=== PATIENT | female | born 1985 | race Caucasian/White ===

== ENCOUNTER 2021-10-06 10:35 | Emergency (ER) | payer OTHER ==
[~2021-10-06] VITALS: Ht 162.6 cm; Wt 70.0 kg
[2021-10-06] MEDS ORDERED: FLUO10CA24 PO (10:50)
[2021-10-06] MEDS ORDERED: MEDR150V13 IM (10:51)
[2021-10-06] MEDS ORDERED: NITR-75 PO (12:01)
[2021-10-06] MEDS ORDERED: PHEN-846 PO (12:01)
[2021-10-06 12:29] VITALS: BP 103/64
[2021-10-06 12:36] LABS: APPEARANCE,URINE CLEAR (CLEAR); BILIRUBIN,URINE NEGATIVE (NEGATIVE); GLUCOSE, URINE (UA) NEGATIVE (NEGATIVE); KETONES,URINE NEGATIVE (NEGATIVE); LEUKOCYTE ESTERASE ,URINE LARGE (NEGATIVE); NITRATE,URINE NEGATIVE (NEGATIVE); OCCULT BLOOD,URINE TRACE (NEGATIVE); PROTEIN,URINE TRACE mg/dL (NEGATIVE); SPECIFIC GRAVITIY, URINE 1.013 (1.003-1.030); UROBILINOGEN,URINE <=1.0 mg/dL (<=1.0)
[2021-10-06 12:50] LABS: BACTERIA,URINE Many /HPF (None Seen); WBC,URINE 51-100 /HPF (0-5)
[2021-10-06 12:51] LABS: SQUAMOUS EPITHELIAL CELL,UR Few /LPF (None Seen)
== END 2021-10-06 12:34 | disposition home or self-care (01) ==
LOC: EMS 10:38
DX: N39.0 Urinary tract infection, site not specified (principal); F10.20 Alcohol dependence, uncomplicated
CPT/HCPCS: 81001; 87086; 99283

== ENCOUNTER 2022-04-04 09:04 | Emergency (ER) | payer OTHER ==
[~2022-04-04] VITALS: Ht 162.6 cm; Wt 75.5 kg
[~2022-04-04 09:04] MED LIST: FLUO10CA24 PO; MEDR150V13 IM; NITR-75 PO; PHEN-846 PO
[2022-04-04 10:30] LABS: APPEARANCE,URINE CLEAR (CLEAR); BILIRUBIN,URINE NEGATIVE (NEGATIVE); GLUCOSE, URINE (UA) NEGATIVE (NEGATIVE); KETONES,URINE NEGATIVE (NEGATIVE); LEUKOCYTE ESTERASE ,URINE NEGATIVE (NEGATIVE); NITRATE,URINE NEGATIVE (NEGATIVE); OCCULT BLOOD,URINE NEGATIVE (NEGATIVE); PROTEIN,URINE NEGATIVE (NEGATIVE); SPECIFIC GRAVITIY, URINE 1.008 (1.003-1.030); UROBILINOGEN,URINE <=1.0 mg/dL (<=1.0)
[2022-04-04 10:50] LABS: BASOPHILS % (AUTO) 0.9 % (0.0-2.0); HEMATOCRIT 36.8 % (36-46); HEMOGLOBIN 12.6 g/dL (12.0-16.0); LYMPHOCYTES # (AUTO) 1.3 K/uL (1.0-4.8); MEAN CORPUSCULAR HEMOGLOBIN 30.6 pg (26.0-34.0); MEAN CORPUSCULAR HGB CONC 34.3 G/dL (31.0-37.0); MEAN CORPUSCULAR VOLUME 89 fL (80-100); MONOCYTES # (AUTO) 0.2 K/uL (0.1-1.0); MONOCYTES % (AUTO) 5.1 % (2.0-9.0); NEUTROPHILS # (AUTO) 2.4 K/uL (1.8-7.7); PLATELET COUNT (AUTO) 234 K/uL (150-450); RED BLOOD CELL COUNT(AUTO) 4.12 MIL/uL (4.00-5.20); RED CELL DISTRIBUTION WIDTH 12.8 % (11.5-14.5)
[2022-04-04 11:00] LABS: ANION GAP 7 mmol/L (8-16); CALCIUM, TOTAL 9.1 mg/dL (8.8-10.5); CARBON DIOXIDE 26 mmol/L (22-29); CHLORIDE 104 mmol/L (98-107); CREATININE 0.86 mg/dL (0.60-1.30); GLUCOSE,RANDOM 87 mg/dL (70-110); POTASSIUM 3.7 mmol/L (3.5-5.1); SODIUM SERUM 137 mmol/L (136-145); UREA NITROGEN, BLOOD 9 mg/dL (7-18)
[2022-04-04 11:01] LABS: GLOMERULAR FILTR. RATE CALC > 60 mL/min (>60)
[2022-04-04 11:29] LABS: HCG,QUANTITATIVE 14828 mIU/mL (0-6)
[2022-04-04 11:40] VITALS: BP 112/89
== END 2022-04-04 12:30 | disposition left against medical advice (07) ==
LOC: EMS 09:09
DX: O26.891 Other specified pregnancy related conditions, first trimester (principal); R10.32 Left lower quadrant pain; Z98.51 Tubal ligation status; Z98.890 Other specified postprocedural states; Z3A.01 Less than 8 weeks gestation of pregnancy
CPT/HCPCS: 76801; 80048; 81003; 84702; 85025; 86850; 86900; 86901; 87491; 87591; 99284